=== PATIENT | female | born 1935 | race Two or more races ===

== ENCOUNTER 2025-06-03 15:02 | Inpatient (IN) | payer MEDICARE, OTHER ==
[~2025-06-03] VITALS: Ht 152.4 cm; Wt 45.2 kg
[2025-06-03 16:00] VITALS: PULSE 75; RESP 18; O2SAT 93
[2025-06-03] MEDS ORDERED: MORPHINE SULFATE INJ 2 MG/ml SYRG IV PRN (16:45)
[2025-06-03 16:47] VITALS: BP 151/87; PULSE 75; RESP 16; TEMP 97.3; O2SAT 95
--- NOTE | 2025-06-03 17:04 | DVHHP2 ---
Current Medications Current Medications Medications (Trade) Dose Ordered Sig/Cecy Route PRN Reason Start Time Stop Time Status Last Admin Nitroglycerin (Ntrostat Sublingual) 0.4 mg Q5MINP PRN SL FOR CHEST PAIN 06/03/25 16:45 UNV Morphine Sulfate 2 mg Q30M PRN IV FOR CHEST PAIN 06/03/25 16:45 UNV Vital Signs Vital Signs Date Time Temp Pulse Resp B/P (MAP) Pulse Ox O2 Delivery O2 Flow Rate FiO2 06/03/25 16:47 97.3 75 16 151/87 (108) 95 97.3 SEPSIS Sepsis Screen Physician Orders Admit (06/03/25 16:44) Nitroglycerin Sublingual (Ntrostat Subli (06/03/25 16:45) Morphine Sulfate Injection (06/03/25 16:45) Stat Ekg For Chest Pain (06/03/25 16:44) Notify Md Of Changes From Base (06/03/25 16:44) Wire Border Assembler For 24 Hours (06/03/25 16:44) Emergency Dysrhythmia Protocol (06/03/25 16:44) Rhythm Strips Once Every Shift (06/03/25 16:44) Oxygen By Nasal Cannula (06/03/25 16:44) Complete Blood Count (06/04/25 07:00) Comprehensive Metabolic Panel (06/03/25 16:44) Comprehensive Metabolic Panel (06/04/25 07:00) Hemoglobin A1c (06/04/25 07:00) Lipid Panel (06/03/25 07:00) Thyroid Stimulating Hormone (06/03/25 16:44) Vitamin B12 (06/03/25 16:44) Complete Blood Count (06/03/25 16:44) Urine Bacterial Culture (06/03/25 16:50) Blood Culture (06/03/25 16:50) Blood Culture (06/04/25 16:50) Urinalysis (06/03/25 16:50) 1/2 Ns (06/03/25 17:15) Ceftazidime Fortaz (06/03/25 22:00) Acetaminophen Tab Or Cap (Tylenol Tablet (06/03/25 17:15) Vital Signs Date Time Temp Pulse Resp B/P (MAP) Pulse Ox O2 Delivery O2 Flow Rate FiO2 06/03/25 16:47 97.3 75 16 151/87 (108) 95 97.3 TACO JUDD MD Jun 03, 2025 17:04
[2025-06-03] MEDS ORDERED: ACETAMINOPHEN 500 MG TAB or CAP PO PRN (17:15)
[2025-06-03 18:28] LABS: Hematocrit 43.7 % (36.0-46.0); Hemoglobin 14.7 g/dL (12.2-16.2); Mean Corpuscular Hemoglobin 29.6 pg (28.0-32.0); Mean Corpuscular Volume 87.9 fL (80.0-100.0); Nucleated Red Blood Cells % 0.1 %
[2025-06-03 18:49] LABS: Alanine Aminotransferase 18 U/L (7-40); Alkaline Phosphatase 81 U/L (46-116); Anion Gap 10 (5-15); BUN/Creatinine Ratio 14.4 (10.0-20.0); Blood Urea Nitrogen 17 mg/dL (9-23); Calcium 9.3 mg/dL (8.7-10.4); Carbon Dioxide 28 mmol/L (20-31); Chloride 104 mmol/L (98-107); Glucose 103 mg/dL (74-106); Potassium 3.7 mmol/L (3.5-5.1); Sodium 142 mmol/L (136-145); Total Protein 8.2 g/dL (5.7-8.2)
[2025-06-03 18:50] LABS: Albumin 4.6 g/dL (3.2-4.8); Bilirubin, Total 0.7 mg/dL (0.2-1.0)
[2025-06-03] MEDS: SOD CHL 0.45% 1,000 ML IV SCH (18:52)
[2025-06-03 18:58] LABS: Cholesterol 241 mg/dL (< 200); HDL Cholesterol 51 mg/dL (40-59)
[2025-06-03 18:59] LABS: Triglycerides 305 mg/dL (< 150)
[2025-06-03 20:00] VITALS: PULSE 74; PULSE 84; RESP 20; O2SAT 98
[2025-06-03 21:00] VITALS: BP 165/87; PULSE 74; RESP 20; TEMP 98; O2SAT 98
[2025-06-03] MEDS: cefTAZidime 1 GM in SODIUM CHL 0.9% 50 ML IV SCH (22:26)
[2025-06-03] MEDS: VALSARTAN 80 MG TAB PO ONE (23:34)
[2025-06-04] VITALS (10 sets, daily range): BP systolic 132–167; BP diastolic 68–87; PULSE 64–68; RESP 17–18; TEMP 98–98.3; O2SAT 94–98
[2025-06-04 08:09] LABS: Hematocrit 38.2 % (36.0-46.0); Hemoglobin 13.3 g/dL (12.2-16.2); Mean Corpuscular Hemoglobin 30.6 pg (28.0-32.0); Mean Corpuscular Volume 87.6 fL (80.0-100.0); Nucleated Red Blood Cells % 0.0 %
[2025-06-04 08:14] LABS: Alanine Aminotransferase 12 U/L (7-40); Alkaline Phosphatase 57 U/L (46-116); Anion Gap 9 (5-15); BUN/Creatinine Ratio 12.5 (10.0-20.0); Blood Urea Nitrogen 11 mg/dL (9-23); Carbon Dioxide 23 mmol/L (20-31); Chloride 107 mmol/L (98-107); Glucose 101 mg/dL (74-106); Potassium 3.8 mmol/L (3.5-5.1); Sodium 139 mmol/L (136-145); Total Protein 7.0 g/dL (5.7-8.2)
[2025-06-04 08:15] LABS: Albumin 3.8 g/dL (3.2-4.8); Bilirubin, Total 0.8 mg/dL (0.2-1.0)
[2025-06-04 08:19] LABS: Calcium 8.6 mg/dL (8.7-10.4)
[2025-06-04] MEDS: VALSARTAN 80 MG TAB PO SCH (09:20)
--- NOTE | 2025-06-04 22:27 | DVHPN2 ---
Progress Note - Dictate Date Seen: Jun 04, 2025 Subjective The patient is currently being treated for symptoms of upper urinary tract infection Acute pyelonephritis, hypovolemia and profound generalized weakness * Awaiting results of urine cultures * Blood cultures are unremarkable for bacterial growth Seen past 24 hours * Labs are reflective normal white cell count, TSH B12 folate levels vital signs Vital Sign Date Time Temp Pulse Resp B/P (MAP) Pulse Ox O2 Delivery O2 Flow Rate FiO2 06/04/25 21:00 98.3 65 18 167/87 (113) 95 98.3 06/04/25 07:40 Room Air* 0 21 Total Intake and Output 06/03/25 06/03/25 06/04/25 15:00 23:00 07:00 Intake Total 890 ml Balance 890 ml medications Current Medications Medications Dose Ordered Sig/Cecy Route Start Time Stop Time Status Last Admin Dose Admin Nitroglycerin 0.4 mg Q5MINP PRN SL 06/03/25 16:45 Morphine Sulfate 2 mg Q30M PRN IV 06/03/25 16:45 Sodium Chloride 1,000 ml @ 75 mls/hr [id number] IV 06/03/25 17:15 06/03/25 18:52 75 MLS/HR Ceftazidime/ Dextrose 1 gm/ Sodium Chloride 50 ml @ 16.667 mls/ hr Q8HR IV 06/03/25 22:00 06/04/25 14:28 16.667 MLS/HR Acetaminophen 500 mg Q8HP PRN PO 06/03/25 17:15 Valsartan 160 mg DAILY PO 06/04/25 10:00 06/04/25 09:20 160 MG objective General appearance: Well-developed, well-nourished Awake alert oriented x3 no respiratory distress Head: Normocephalic nontraumatic Eyes: EOMI, TRELL, sclera nonicteric, conjunctive- pale ENT: No congestion, NSL bilateral symmetrical, oral mucosa dry Neck: Supple, carotid upstroke +2, trachea midline, JVD-3 cm, C spine- Full ROM No thyroid or lymph node , no use of sternomastoid muscle Chest: Bilateral symmetrical expansions, No costochondral tenderness Breasts: I exam - Bilateral symmetrical, Pexam - deferred Lungs: clear breath sounds all over except reduced at bases CVS: PMI- cm medial to L MCL in fifth ICS , S1- S2 NSR no S3 GI: Abdomen soft, obese, bowel sounds normoactive No focal tenderness, no rebound tenderness No hepatosplenomegaly, no mass no hernia , : No CVA tenderness, no bladder mass palpable, genitalia-NE SKIN: Turgor normal, color pink, no rash, no icterus, No varicosity, no ulcers or wounds EXTs: No edema, color pink, no rash, no ecchymosis distal pulses +2 capillary refill <2 seconds, No open wounds JOINTS; full range of motion BACK: No apparent lumbosacral spinal muscle tenderness, LYMPH NODES: No cervical, axillary or inguinal lymph nodes Neuro: Awake alert oriented 4, coherent, all cognitives- intact No pronator drift, no focal motor deficit, No focal sensory deficit, DTR +2, gait steady PSYCH: Affect mildly depressed-denies suicidal ideation laboratory and microbiology Laboratory Tests 06/04/25 07:30 Test 06/04/25 07:30 Range/Units Serum Glucose 101 74-106 mg/dL Problem List Acute pyelonephritis Moderately severe hypovolemia Confused mental status from a. Acute kidney injury b. Urinary tract infection-sepsis is ruled out Dementia Assessment/Plan Medical decision making Overall general condition of the patient has started clinically improving With correction of state of hypovolemia. Her urine and blood culture results are pending. Case is discussed with the assigned RN Last night she was noted to have uncontrolled hypertension for which she is recommended continuation of Diovan 1. Obtain urine and blood culture results 2. Continue IV fluids 3. Continue IV antibiotics Dietary Evaluation Review Recommendations by RD: Dietary education by TACO FIGUEREDO MD Jun 04, 2025 22:27
[2025-06-04 22:57] LABS: Urine Protein, UAD Negative (Negative)
[2025-06-05] VITALS (8 sets, daily range): BP systolic 137–155; BP diastolic 64–90; PULSE 18–79; RESP 16–95; TEMP 96.1–98.4; O2SAT 95–98
--- NOTE | 2025-06-05 16:27 | DVHPN2 ---
Progress Note - Dictate Date Seen: Jun 05, 2025 Subjective The patient is currently being treated for symptoms of upper urinary tract infection Acute pyelonephritis, hypovolemia and profound generalized weakness * Awaiting results of urine cultures * Blood cultures are unremarkable for bacterial growth Seen past 24 hours * Labs are reflective normal white cell count, TSH B12 folate levels vital signs Vital Sign Date Time Temp Pulse Resp B/P (MAP) Pulse Ox O2 Delivery O2 Flow Rate FiO2 06/05/25 13:00 96.5 66 18 155/75 (101) 96 96.5 06/05/25 08:00 Room Air* 0 21 Total Intake and Output 06/04/25 06/04/25 06/05/25 15:00 23:00 07:00 Intake Total 50 ml 480 ml 390 ml Balance 50 ml 480 ml 390 ml medications Current Medications Medications Dose Ordered Sig/Cecy Route Start Time Stop Time Status Last Admin Dose Admin Nitroglycerin 0.4 mg Q5MINP PRN SL 06/03/25 16:45 Morphine Sulfate 2 mg Q30M PRN IV 06/03/25 16:45 Sodium Chloride 1,000 ml @ 75 mls/hr [id number] IV 06/03/25 17:15 06/05/25 09:27 75 MLS/HR Ceftazidime/ Dextrose 1 gm/ Sodium Chloride 50 ml @ 16.667 mls/ hr Q8HR IV 06/03/25 22:00 06/05/25 14:00 16.667 MLS/HR Acetaminophen 500 mg Q8HP PRN PO 06/03/25 17:15 Valsartan 160 mg DAILY PO 06/04/25 10:00 06/05/25 09:36 160 MG objective General appearance: Well-developed, well-nourished Awake alert oriented x3 no respiratory distress Head: Normocephalic nontraumatic Eyes: EOMI, TRELL, sclera nonicteric, conjunctive- pale ENT: No congestion, NSL bilateral symmetrical, oral mucosa dry Neck: Supple, carotid upstroke +2, trachea midline, JVD-3 cm, C spine- Full ROM No thyroid or lymph node , no use of sternomastoid muscle Chest: Bilateral symmetrical expansions, No costochondral tenderness Breasts: I exam - Bilateral symmetrical, Pexam - deferred Lungs: clear breath sounds all over except reduced at bases CVS: PMI- cm medial to L MCL in fifth ICS , S1- S2 NSR no S3 GI: Abdomen soft, obese, bowel sounds normoactive No focal tenderness, no rebound tenderness No hepatosplenomegaly, no mass no hernia , : No CVA tenderness, no bladder mass palpable, genitalia-NE SKIN: Turgor normal, color pink, no rash, no icterus, No varicosity, no ulcers or wounds EXTs: No edema, color pink, no rash, no ecchymosis distal pulses +2 capillary refill <2 seconds, No open wounds JOINTS; full range of motion BACK: No apparent lumbosacral spinal muscle tenderness, LYMPH NODES: No cervical, axillary or inguinal lymph nodes Neuro: Awake alert oriented 4, coherent, all cognitives- intact No pronator drift, no focal motor deficit, No focal sensory deficit, DTR +2, gait steady PSYCH: Affect mildly depressed-denies suicidal ideation laboratory and microbiology Laboratory Tests 06/04/25 07:30 Test 06/04/25 07:30 Range/Units Serum Glucose 101 74-106 mg/dL Problem List Acute pyelonephritis Moderately severe hypovolemia Confused mental status from a. Acute kidney injury b. Urinary tract infection-sepsis is ruled out Dementia Assessment/Plan Medical decision making Overall general condition of the patient has started clinically improving With correction of state of hypovolemia. Her urine and blood culture results are pending. Case is discussed with the assigned RN Last night she was noted to have uncontrolled hypertension for which she is recommended continuation of Diovan 1. Obtain urine and blood culture results 2. Continue IV fluids 3. Continue IV antibiotics Dietary Evaluation Review Recommendations by RD: Dietary education by TACO FIGUEREDO MD Jun 05, 2025 16:27
[2025-06-06 08:53] VITALS: BP 154/88; PULSE 74; RESP 18; TEMP 97; O2SAT 98
[2025-06-06 12:38] VITALS: BP 156/75; PULSE 63; RESP 18; TEMP 97.1; O2SAT 96
[2025-06-06] MEDS: NITROGLYCERIN 0.4 MG SL TAB SL PRN (17:10)
--- NOTE | 2025-06-06 17:13 | DVHPN2 ---
Progress Note - Dictate Date Seen: Jun 06, 2025 Subjective The patient is currently being treated for symptoms of upper urinary tract infection Acute pyelonephritis, hypovolemia and profound generalized weakness * urine cultures-No growth * Blood cultures are unremarkable for bacterial growth Seen past 24 hours * reported chest pain- angina * EKF Lat wall ischenia * Awaiting serum troponins vital signs Vital Sign Date Time Temp Pulse Resp B/P (MAP) Pulse Ox O2 Delivery O2 Flow Rate FiO2 06/06/25 17:10 185/75 06/06/25 12:38 97.1 63 18 96 97.1 06/06/25 08:00 Room Air* 0 21 Total Intake and Output 06/05/25 06/05/25 06/06/25 15:00 23:00 07:00 Intake Total 230 ml 600 ml 150 ml Output Total 400 ml Balance 230 ml 200 ml 150 ml medications Current Medications Medications Dose Ordered Sig/Cecy Route Start Time Stop Time Status Last Admin Dose Admin Nitroglycerin 0.4 mg Q5MINP PRN SL 06/03/25 16:45 06/06/25 17:10 0.4 MG Morphine Sulfate 2 mg Q30M PRN IV 06/03/25 16:45 Sodium Chloride 1,000 ml @ 75 mls/hr [id number] IV 06/03/25 17:15 06/05/25 22:36 75 MLS/HR Ceftazidime/ Dextrose 1 gm/ Sodium Chloride 50 ml @ 16.667 mls/ hr Q8HR IV 06/03/25 22:00 06/06/25 14:18 16.667 MLS/HR Acetaminophen 500 mg Q8HP PRN PO 06/03/25 17:15 Valsartan 160 mg DAILY PO 06/04/25 10:00 06/06/25 10:02 160 MG objective General appearance: Well-developed, well-nourished Awake alert oriented x3 no respiratory distress Head: Normocephalic nontraumatic Eyes: EOMI, TRELL, sclera nonicteric, conjunctive- pale ENT: No congestion, NSL bilateral symmetrical, oral mucosa dry Neck: Supple, carotid upstroke +2, trachea midline, JVD-3 cm, C spine- Full ROM No thyroid or lymph node , no use of sternomastoid muscle Chest: Bilateral symmetrical expansions, No costochondral tenderness Breasts: I exam - Bilateral symmetrical, Pexam - deferred Lungs: clear breath sounds all over except reduced at bases CVS: PMI- cm medial to L MCL in fifth ICS , S1- S2 NSR no S3 GI: Abdomen soft, obese, bowel sounds normoactive No focal tenderness, no rebound tenderness No hepatosplenomegaly, no mass no hernia , : No CVA tenderness, no bladder mass palpable, genitalia-NE SKIN: Turgor normal, color pink, no rash, no icterus, No varicosity, no ulcers or wounds EXTs: No edema, color pink, no rash, no ecchymosis distal pulses +2 capillary refill <2 seconds, No open wounds JOINTS; full range of motion BACK: No apparent lumbosacral spinal muscle tenderness, LYMPH NODES: No cervical, axillary or inguinal lymph nodes Neuro: Awake alert oriented 4, coherent, all cognitives- intact No pronator drift, no focal motor deficit, No focal sensory deficit, DTR +2, gait steady PSYCH: Affect mildly depressed-denies suicidal ideation laboratory and microbiology Laboratory Tests 06/04/25 07:30 Test 06/04/25 07:30 Range/Units Serum Glucose 101 74-106 mg/dL Problem List Acute pyelonephritis Moderately severe hypovolemia Confused mental status from a. Acute kidney injury b. Urinary tract infection-sepsis is ruled out Dementia Assessment/Plan Medical decision making Overall general condition of the patient has started clinically improving With correction of state of hypovolemia. Her urine and blood culture results are pending. Case is discussed with the assigned RN Last night she was noted to have uncontrolled hypertension for which she is recommended continuation of Diovan 1. Obtain urine and blood culture results 2. Continue IV fluids 3. Continue IV antibiotics Dietary Evaluation Review Recommendations by RD: Dietary education by TACO FIGUEREDO MD Jun 06, 2025 17:13
[2025-06-06 21:00] VITALS: BP_SYST 138; BP_SYST 167; BP_DIAS 68; BP_DIAS 69; PULSE 71; RESP 16; TEMP 96; O2SAT 97
[2025-06-06 22:00] VITALS: PULSE 67; RESP 16; O2SAT 97
[2025-06-07 06:26] LABS: Cholesterol 194 mg/dL (< 200); Triglycerides 171 mg/dL (< 150)
[2025-06-07 06:28] LABS: HDL Cholesterol 39 mg/dL (40-59)
--- NOTE | 2025-06-07 08:25 | ECG ---
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
[2025-06-07 08:36] VITALS: BP 146/72; PULSE 67; RESP 16; TEMP 98.1; O2SAT 98
--- NOTE | 2025-06-07 23:01 | DVHDS2 ---
Discharge Summary Date of Admission Jun 03, 2025 at 15:21 Date of Discharge: Jun 07, 2025 Labs/Diagnostic Data: Laboratory Results Test 06/07/25 05:30 06/04/25 22:30 06/04/25 07:30 06/03/25 18:08 Troponin I High Sensitivity 4 ng/L (</=34) Triglycerides Level 171 mg/dL (< 150) Cholesterol Level 194 mg/dL (< 200) LDL Cholesterol 133 mg/dL (< 100) HDL Cholesterol 39 mg/dL (40-59) Urine Color Colorless (Yellow) Urine Clarity Clear (Clear) Urine pH 7.0 (5.0-9.0) Urine Specific [place] 1.006 (1.001-1.035) Urine Protein Negative (Negative) Urine Ketones Negative (Negative) Urine Blood Negative /uL (Negative) Urine Nitrite Negative (Negative) Urine Bilirubin Negative (Negative) Urine Urobilinogen Normal mg/dL (Negative) Urine Leukocyte Esterase 3+ /uL (Negative) Urine RBC 3 /hpf (0 - 4) Urine Microscopic WBC 155 /HPF (0-5) Urine Squamous Epithelial Cells Few /hpf (<5) Urine Bacteria Few /hpf (None Seen) Urine Glucose Normal mg/dL (Normal) White Blood Count 6.2 10^3/uL (4.4-10.8) Red Blood Count 4.36 10^6/uL (4.0-5.20) Hemoglobin 13.3 g/dL (12.2-16.2) Hematocrit 38.2 % (36.0-46.0) Mean Corpuscular Volume 87.6 fL (80.0-100.0) Mean Corpuscular Hemoglobin 30.6 pg (28.0-32.0) Mean Corpuscular Hemoglobin Concent 34.9 g/dL (32.0-36.0) Red Cell Distribution Width 13.1 % (11.8-14.3) Platelet Count 208 10^3/uL (140-450) Mean Platelet Volume 7.8 fL (6.9-10.8) Neutrophils (%) (Auto) 70.8 % (37.0-80.0) Lymphocytes (%) (Auto) 20.9 % (10.0-50.0) Monocytes (%) (Auto) 6.1 % (0.0-12.0) Eosinophils (%) (Auto) 1.4 % (0.0-7.0) Basophils (%) (Auto) 0.8 % (0.0-2.0) Neutrophils # (Auto) 4.4 10 ^3/uL (1.6-8.6) Lymphocytes # (Auto) 1.3 10 ^3/uL (0.4-5.4) Monocytes # (Auto) 0.4 10 ^3/uL (0-1.3) Eosinophils # (Auto) 0.1 10 ^3/uL (0-0.8) Basophils # (Auto) 0.1 10 ^3/uL (0-0.2) Nucleated Red Blood Cells 0.0 % Sodium Level 139 mmol/L (136-145) Potassium Level 3.8 mmol/L (3.5-5.1) Chloride Level 107 mmol/L (98-107) Carbon Dioxide Level 23 mmol/L (20-31) Anion Gap 9 (5-15) Blood Urea Nitrogen 11 mg/dL (9-23) Creatinine 0.88 mg/dL (0.550-1.02) Glomerular Filtration Rate Calc 63 mL/min (>90) BUN/Creatinine Ratio 12.5 (10.0-20.0) Serum Glucose 101 mg/dL (74-106) Hemoglobin A1c 5.5 % A1C (<5.7) Calcium Level 8.6 mg/dL (8.7-10.4) Total Bilirubin 0.8 mg/dL (0.2-1.0) Aspartate Amino Transferase (AST) 21 U/L (13-40) Alanine Aminotransferase (ALT) 12 U/L (7-40) Alkaline Phosphatase 57 U/L (46-116) Total Protein 7.0 g/dL (5.7-8.2) Albumin 3.8 g/dL (3.2-4.8) Vitamin B12 Level 679 pg/mL (211-911) Thyroid Stimulating Hormone (TSH) 0.69 uIU/mL (0.55-4.78) Other Laboratory Tests 06/04/25 07:30 Discharge Statement: "Patient was advised to return to the ER or call 911 if any headaches, dizziness, shortness of breath, chest pain, abdominal pain, bleeding, fevers, or worsening of medical condition. Patient was counseled about treatment plan, medications, possible side effects, patientverbalized understanding. All questions were answered to the best of my ability. This discharge took greater then 30 minutes in planning, reviewing documentation, counseling the patient, and discussing with other team members." ASSESSMENT ASSESSMENT Assessment TACO JUDD MD Jun 07, 2025 23:01
--- NOTE | 2025-06-07 23:02 | DVHPN2 ---
Progress Note - Dictate Date Seen: Jun 07, 2025 Subjective The patient is currently being treated for symptoms of upper urinary tract infection Acute pyelonephritis, hypovolemia and profound generalized weakness * urine cultures-No growth * Blood cultures are unremarkable for bacterial growth Seen past 24 hours * reported chest pain- angina * EKF Lat wall [place]chenia * Awaiting serum troponins vital signs Vital Sign Date Time Temp Pulse Resp B/P (MAP) Pulse Ox O2 Delivery O2 Flow Rate FiO2 06/07/25 09:22 146/72 06/07/25 08:36 98.1 67 16 98 98.1 06/06/25 22:00 Room Air* 0 21 Total Intake and Output 06/06/25 06/06/25 06/07/25 15:00 23:00 07:00 Intake Total 280 ml 50 ml Balance 280 ml 50 ml objective General appearance: Well-developed, well-nourished Awake alert oriented x3 no respiratory distress Head: Normocephalic nontraumatic Eyes: EOMI, TRELL, sclera nonicteric, conjunctive- pale ENT: No congestion, NSL bilateral symmetrical, oral mucosa dry Neck: Supple, carotid upstroke +2, trachea midline, JVD-3 cm, C spine- Full ROM No thyroid or lymph node , no use of sternomastoid muscle Chest: Bilateral symmetrical expansions, No costochondral tenderness Breasts: I exam - Bilateral symmetrical, Pexam - deferred Lungs: clear breath sounds all over except reduced at bases CVS: PMI- cm medial to L MCL in fifth ICS , S1- S2 NSR no S3 GI: Abdomen soft, obese, bowel sounds normoactive No focal tenderness, no rebound tenderness No hepatosplenomegaly, no mass no hernia , : No CVA tenderness, no bladder mass palpable, genitalia-NE SKIN: Turgor normal, color pink, no rash, no icterus, No varicosity, no ulcers or wounds EXTs: No edema, color pink, no rash, no ecchymosis distal pulses +2 capillary refill <2 seconds, No open wounds JOINTS; full range of motion BACK: No apparent lumbosacral spinal muscle tenderness, LYMPH NODES: No cervical, axillary or inguinal lymph nodes Neuro: Awake alert oriented 4, coherent, all cognitives- intact No pronator drift, no focal motor deficit, No focal sensory deficit, DTR +2, gait steady PSYCH: Affect mildly depressed-denies suicidal ideation laboratory and microbiology Laboratory Tests 06/04/25 07:30 Test 06/04/25 07:30 Range/Units Serum Glucose 101 74-106 mg/dL Problem List Acute pyelonephritis Moderately severe hypovolemia Confused mental status from a. Acute kidney injury b. Urinary tract infection-sepsis is ruled out Dementia Assessment/Plan Medical decision making Overall general condition of the patient has started clinically improving With correction of state of hypovolemia. Her urine and blood culture results are pending. Case is discussed with the assigned RN Last night she was noted to have uncontrolled hypertension for which she is recommended continuation of Diovan 1. Obtain urine and blood culture results 2. Continue IV fluids 3. Continue IV antibiotics Dietary Evaluation Review Recommendations by RD: Dietary education by TACO FIGUEREDO MD Jun 07, 2025 23:02
== END 2025-06-07 09:55 | disposition left against medical advice (07) | DRG 690 ==
LOC: TELE-WESTW 15:21
PROVIDERS: ADMIT Specialist; ATTEND Specialist
DX: N10 Acute pyelonephritis (principal); I10 Essential (primary) hypertension; E66.9 Obesity, unspecified; F03.90 Unspecified dementia, unspecified severity, without behavioral disturbance, psychotic disturbance, mood disturbance, and anxiety; N17.9 Acute kidney failure, unspecified; E86.1 Hypovolemia; Z53.29 Procedure and treatment not carried out because of patient's decision for other reasons; Z68.21 Body mass index [BMI] 21.0-21.9, adult
CPT/HCPCS: 36415; 80053; 80061; 81001; 82607; 83036; 84443; 84484; 85025; 87040; 87086; 93005; G0378